=== PATIENT | male | born 1980 | race Caucasian/White ===

== ENCOUNTER 2024-04-27 15:56 | Outpatient (CLI) | payer OTHER, SELFPAY | END 2024-04-27 15:57 | disposition home or self-care (01) | PROVIDERS: PCP Internal Medicine; Visit Provider Internal Medicine | DX: R53.83 Other fatigue (principal) | CPT/HCPCS: 80053; 80061 ==

== ENCOUNTER 2024-04-30 07:24 | Outpatient (CLI) | payer OTHER, SELFPAY ==
--- NOTE | 2024-04-30 07:30 | CRLHL7_ITS ---
For Patients: As a result of the Century Cures Act, medical imaging exams and procedure reports are released immediately into your electronic medical record. You may view this report before your referring provider. If you have questions, please contact your health care provider. INDICATION: Leg pain and swelling COMPARISON: None. TECHNIQUE: A compression venous ultrasound exam was performed of the right lower extremity using larsen-scale imaging, color Doppler and spectral Doppler analysis. FINDINGS: Sonographic imaging of the right lower extremity demonstrates normal compressibility and color Doppler venous blood flow within the common femoral vein, deep femoral vein, and the proximal greater saphenous vein. Within the thigh, the femoral vein is patent and compressible. At a lower level, the popliteal and posterior tibial veins also show normal compressibility and color Doppler venous blood flow. Limited imaging of the contralateral groin demonstrates a normal spectral waveform and color Doppler venous blood flow within the left common femoral vein. IMPRESSION: Normal venous ultrasound exam. No evidence of deep vein thrombosis within the right lower extremity. Dictated by Josh Bejarano MD @ 05/02/2024 6:02:50 AM (Electronically Signed)
== END 2024-04-30 07:25 | disposition home or self-care (01) ==
LOC: US 07:24
PROVIDERS: PCP Internal Medicine; Visit Provider Internal Medicine
DX: M79.89 Other specified soft tissue disorders (principal)
CPT/HCPCS: 93971

== ENCOUNTER 2024-06-16 13:46 | Outpatient (CLI) | payer OTHER, SELFPAY ==
--- NOTE | 2024-07-27 08:31 | W.PM.SLEEP ---
Sleep Study Details Details Interpreting Provider: Chuck Date of Sleep Study: 06/16/24 Sleep Study Details: STUDY TYPE:? Home unattended ? BMI:? Not recorded ORDERING PROVIDER:? Chuck INDICATION:? Concern about sleep apnea ? SLEEP SUMMARY:? Monitor time 434 minutes RESPIRATORY SUMMARY:? AHI 97.7 Low low oxygen 52% 54.4% of study oxygen less than 90% Snoring 43.5% PERIODIC LIMB MOVEMENTS OF SLEEP:? Not recorded CARDIAC:? Range 58-129, mean 92 IMPRESSION:? Tachycardia was observed. Further cardiac evaluation may be indicated Very severe obstructive sleep apnea with significant hypo oxygenation. RECOMMENDATION: Would recommend an in-lab titration. This patient may require bilevel or the. Further cardiac evaluation may be indicated.
== END 2024-06-16 13:47 | disposition home or self-care (01) ==
LOC: SLEEP 13:46
PROVIDERS: PCP Internal Medicine; Visit Provider Otolaryngology
DX: G47.33 Obstructive sleep apnea (adult) (pediatric) (principal); R00.0 Tachycardia, unspecified
CPT/HCPCS: 95806